=== PATIENT | male | born 1970 | race Caucasian/White ===

== ENCOUNTER 2018-03-25 07:36 | Emergency (ER) | payer OTHER ==
[~2018-03-25] VITALS: Ht 180.3 cm; Wt 110.0 kg
[~2018-03-25 07:36] MED LIST: ACET-1600 PO; LISI-167 PO; MULT-224 PO; None per pt; OXYC-307 PO
[2018-03-25 07:58] LABS: BASOPHILS # (AUTO) 0.08 x10^3/uL (0-0.1); BASOPHILS % (AUTO) 1 % (0-1); EOSINOPHILS # (AUTO) 0.17 x10^3/uL (0-0.4); EOSINOPHILS % (AUTO) 1 % (1-7); LYMPHOCYTES # (AUTO) 2.28 x10^3/uL (1-3.4); LYMPHOCYTES % (AUTO) 17 % (22-44); MD NO; MEAN CORPUSCULAR HEMOGLOBIN 33.3 pg (27.5-34.5); MEAN CORPUSCULAR HGB CONC 34.2 g/dL (33.2-36.2); MEAN CORPUSCULAR VOLUME 97.2 fL (81-97); MONOCYTES # (AUTO) 0.69 x10^3/uL (0.2-0.8); MONOCYTES % (AUTO) 5 % (2-9); NEUTROPHILS # (AUTO) 10.58 x10^3/uL (1.8-6.8); NEUTROPHILS % (AUTO) 77 % (42-75); PLATELET COUNT 392 x10^3/uL (130-400); RED BLOOD COUNT 4.91 x10^6/uL (4.38-5.82); RED CELL DISTRIBUTION WIDTH 12.9 % (9.4-14.8)
[2018-03-25] MEDS ORDERED: MORPHINE SULFATE 4 MG/ML, 1ML IVPush PRN (08:00)
[2018-03-25] MEDS ORDERED: SODIUM CHLORIDE FLUSH 10ML SYR IVF ONE (08:00)
[2018-03-25] MEDS ORDERED: DIPHENHYDRAMINE 50 MG/ML, 1ML IVPush ONE (08:00)
[2018-03-25] MEDS ORDERED: HALOPERIDOL 5 MG/ML IM ONE (08:00)
[2018-03-25] MEDS ORDERED: SODIUM CHLORIDE 0.9% 1,000ML IVBOLUS ONE (08:00)
[2018-03-25 08:08] LABS: ALANINE AMINOTRANSFERASE 26 U/L (12-78); ALBUMIN 4.1 g/dL (3.4-5.0); ANION GAP 9 mmol/L (5-15); CALCIUM 9.3 mg/dL (8.5-10.1); CHLORIDE 109 mmol/L (98-107); CREATININE 1.09 mg/dL (0.7-1.3)
[2018-03-25] MEDS ORDERED: MORPHINE SULFATE 4 MG/ML, 1ML ONE (08:09)
[2018-03-25] MEDS ORDERED: HALOPERIDOL 5 MG/ML ONE (08:09)
[2018-03-25] MEDS ORDERED: DIPHENHYDRAMINE 50 MG/ML, 1ML ONE (08:09)
[2018-03-25 08:10] LABS: ALKALINE PHOSPHATASE 81 U/L (45-117); BILIRUBIN,TOTAL 0.4 mg/dL (0.2-1.0); TOTAL PROTEIN 7.3 g/dL (6.4-8.2)
[2018-03-25 09:21] VITALS: BP 131/68
[2018-03-25 09:45] LABS: MICROSCOPIC NOT IND
[2018-03-25 09:49] LABS: CULTURE INDICATED? NO
== END 2018-03-25 10:41 | disposition home or self-care (01) ==
LOC: ED 10:35
DX: G43.A1 Cyclical vomiting, in migraine, intractable (principal); K21.9 Gastro-esophageal reflux disease without esophagitis; I10 Essential (primary) hypertension; F12.10 Cannabis abuse, uncomplicated; Z90.49 Acquired absence of other specified parts of digestive tract; Z87.891 Personal history of nicotine dependence
CPT/HCPCS: 36415; 74021; 80053; 81003; 83605; 83690; 85025; 93005; 96361; 96372; 96374; 96375; 99285; J1200; J1630; J7030

== ENCOUNTER 2018-05-27 13:11 | Inpatient (IN) | payer OTHER ==
[~2018-05-27] VITALS: Ht 180.3 cm; Wt 118.2 kg
[2018-05-27] MEDS ORDERED: SODIUM CHLORIDE 0.9% 1,000ML IVBOLUS ONE ×2 (13:30→17:30)
[2018-05-27] MEDS ORDERED: PROMETHAZINE 25 MG/ML, 1ML IM ONE (13:30)
[2018-05-27] MEDS ORDERED: PROMETHAZINE 25 MG/ML, 1ML ONE (13:39)
[2018-05-27] MEDS ORDERED: MORPHINE SULFATE 4 MG/ML, 1ML ONE ×2 (13:39→14:53)
[2018-05-27] MEDS: MORPHINE SULFATE 4 MG/ML, 1ML IVPush PRN ×2 (13:47→15:00)
[2018-05-27 14:07] LABS: BASOPHILS # (AUTO) 0.04 x10^3/uL (0-0.1); BASOPHILS % (AUTO) 0 % (0-1); EOSINOPHILS # (AUTO) 0.01 x10^3/uL (0-0.4); EOSINOPHILS % (AUTO) 0 % (1-7); LYMPHOCYTES # (AUTO) 1.61 x10^3/uL (1-3.4); LYMPHOCYTES % (AUTO) 12 % (22-44); MD NO; MEAN CORPUSCULAR HEMOGLOBIN 33.2 pg (27.5-34.5); MEAN CORPUSCULAR HGB CONC 33.9 g/dL (33.2-36.2); MEAN CORPUSCULAR VOLUME 98.1 fL (81-97); MEAN PLATELET VOLUME 8.1 fL (7.4-10.4); MONOCYTES # (AUTO) 0.53 x10^3/uL (0.2-0.8); MONOCYTES % (AUTO) 4 % (2-9); NEUTROPHILS # (AUTO) 11.66 x10^3/uL (1.8-6.8); NEUTROPHILS % (AUTO) 84 % (42-75); PLATELET COUNT 383 x10^3/uL (130-400); RED BLOOD COUNT 4.97 x10^6/uL (4.38-5.82); RED CELL DISTRIBUTION WIDTH 13.5 % (9.4-14.8)
[2018-05-27 14:18] LABS: ALBUMIN 4.3 g/dL (3.4-5.0); ANION GAP 6 mmol/L (5-15); CALCIUM 9.3 mg/dL (8.5-10.1); CHLORIDE 108 mmol/L (98-107)
[2018-05-27 14:21] LABS: ALANINE AMINOTRANSFERASE 28 U/L (12-78); ALKALINE PHOSPHATASE 82 U/L (45-117); BILIRUBIN,TOTAL 0.6 mg/dL (0.2-1.0); CREATININE 1.14 mg/dL (0.7-1.3); TOTAL PROTEIN 7.7 g/dL (6.4-8.2)
[2018-05-27 15:02] LABS: MICROSCOPIC NOT IND
[2018-05-27 15:12] LABS: CULTURE INDICATED? NO
[2018-05-27] MEDS ORDERED: OMNIPAQUE 350 MG/ML, 100ML BOTTLE ONE (16:09)
[2018-05-27] MEDS ORDERED: ONDANSETRON ODT 4 MG ONE (17:19)
[2018-05-27] MEDS ORDERED: ONDANSETRON ODT 4 MG PO ONE (17:30)
[2018-05-27] MEDS ORDERED: ZOLP10TA PO (17:57)
[2018-05-27] MEDS ORDERED: BUSP30TA PO (17:57)
[2018-05-27 18:35] VITALS: BP 127/85
[2018-05-27] MEDS ORDERED: ZOLPIDEM 10MG TABLET PO PRN (20:00)
[2018-05-27] MEDS ORDERED: NITROGLYCERIN 0.4 MG BOTTLE (25 TABS) SL PRN (20:00)
[2018-05-27] MEDS ORDERED: ACETAMINOPHEN 325 MG TABLET PO PRN (20:00)
[2018-05-27] MEDS ORDERED: NITROGLYCERIN 0.4 MG/SPRAY SL PRN (20:00)
[2018-05-27] MEDS ORDERED: ONDANSETRON 2MG/ML, 2ML IVPush PRN (20:00)
[2018-05-27 20:41] LABS: TROPONIN I < 0.015 ng/mL (0.000-0.045)
[2018-05-27] MEDS: morphine SULFATE 10 MG/ML, 1ML IVPush PRN (20:42)
[2018-05-27 21:15] LABS: CLOSTRIDIUM DIFFICILE ANTIGEN NEGATIVE; CLOSTRIDIUM DIFFICILE TOXIN NEGATIVE (Negative)
[2018-05-27 21:50] VITALS: BP 125/83
[2018-05-27] MEDS: METOCLOPRAMIDE 5 MG/ML, 2ML IVPush SCH (21:56)
[2018-05-27] MEDS: FAMOTIDINE 20 MG TABLET PO SCH (21:56)
[2018-05-27] MEDS: ENOXAPARIN 40 MG/0.4 ML SQ SCH (21:59)
[2018-05-27] MEDS: SODIUM CHLORIDE 0.9% 1,000 ML IV SCH (23:15)
[2018-05-28 01:48] VITALS: BP 104/66
[2018-05-28] MEDS: morphine SULFATE 10 MG/ML, 1ML IVPush PRN ×5 (01:53→20:47)
[2018-05-28 01:56] LABS: BASOPHILS # (AUTO) 0.04 x10^3/uL (0-0.1); BASOPHILS % (AUTO) 0 % (0-1); EOSINOPHILS # (AUTO) 0.01 x10^3/uL (0-0.4); EOSINOPHILS % (AUTO) 0 % (1-7); LYMPHOCYTES # (AUTO) 2.38 x10^3/uL (1-3.4); LYMPHOCYTES % (AUTO) 17 % (22-44); MD NO; MEAN CORPUSCULAR HEMOGLOBIN 33.2 pg (27.5-34.5); MEAN CORPUSCULAR HGB CONC 33.8 g/dL (33.2-36.2); MEAN PLATELET VOLUME 8.1 fL (7.4-10.4); MONOCYTES # (AUTO) 0.76 x10^3/uL (0.2-0.8); MONOCYTES % (AUTO) 5 % (2-9); NEUTROPHILS # (AUTO) 11.05 x10^3/uL (1.8-6.8); NEUTROPHILS % (AUTO) 78 % (42-75); PLATELET COUNT 380 x10^3/uL (130-400); RED BLOOD COUNT 4.43 x10^6/uL (4.38-5.82); RED CELL DISTRIBUTION WIDTH 13.4 % (9.4-14.8)
[2018-05-28 02:09] LABS: ALANINE AMINOTRANSFERASE 24 U/L (12-78); ALBUMIN 3.5 g/dL (3.4-5.0); ANION GAP 5 mmol/L (5-15); CALCIUM 8.4 mg/dL (8.5-10.1); CHLORIDE 111 mmol/L (98-107); CREATININE 0.94 mg/dL (0.7-1.3)
[2018-05-28 02:14] LABS: TROPONIN I < 0.015 ng/mL (0.000-0.045)
[2018-05-28 02:19] LABS: ALKALINE PHOSPHATASE 66 U/L (45-117); BILIRUBIN,TOTAL 0.5 mg/dL (0.2-1.0); THYROID STIMULATING HORMONE 0.422 mIU/L (0.358-3.740); TOTAL PROTEIN 6.6 g/dL (6.4-8.2)
[2018-05-28] MEDS: METOCLOPRAMIDE 5 MG/ML, 2ML IVPush SCH ×4 (04:00→20:32)
[2018-05-28] MEDS: SODIUM CHLORIDE 0.9% 1,000 ML IV SCH ×3 (06:03→20:31)
[2018-05-28 07:06] VITALS: BP 138/92
[2018-05-28] MEDS: BUSPIRONE 10 MG TABLET PO SCH (08:01)
[2018-05-28] MEDS: FAMOTIDINE 20 MG TABLET PO SCH ×2 (08:01→22:25)
[2018-05-28 14:29] VITALS: BP 152/113
[2018-05-28 17:22] VITALS: BP 97/65
[2018-05-28] MEDS: METOPROLOL TARTRATE 50 MG TABLET PO SCH (17:24)
[2018-05-28 20:26] VITALS: BP 132/85
[2018-05-28] MEDS: ENOXAPARIN 40 MG/0.4 ML SQ SCH (22:25)
[2018-05-29 01:29] VITALS: BP 132/88
[2018-05-29] MEDS: morphine SULFATE 10 MG/ML, 1ML IVPush PRN ×3 (01:54→10:40)
[2018-05-29] MEDS: METOCLOPRAMIDE 5 MG/ML, 2ML IVPush SCH ×3 (02:35→14:30)
[2018-05-29] MEDS: SODIUM CHLORIDE 0.9% 1,000 ML IV SCH ×3 (02:35→14:32)
[2018-05-29 07:06] VITALS: BP 144/98
[2018-05-29] MEDS: METOPROLOL TARTRATE 50 MG TABLET PO SCH (07:19)
[2018-05-29] MEDS: FAMOTIDINE 20 MG TABLET PO SCH (07:46)
[2018-05-29] MEDS: BUSPIRONE 10 MG TABLET PO SCH (07:46)
[2018-05-29 13:43] VITALS: BP 156/107
[2018-05-29] MEDS ORDERED: CLON0.2T10 PO (13:49)
[2018-05-29] MEDS ORDERED: METO50TA82 PO (13:49)
== END 2018-05-29 15:08 | disposition home or self-care (01) | DRG 392 ==
LOC: ED 13:51 → EDIP 17:14 → 3NE 17:59 → 5SO 23:08 → UNDODISIN 05-29 14:40 → DCLOUNGE 05-29 14:45
PROVIDERS: ADMIT Hospitalist; ATTEND Internal Medicine
PROC: 0T9B70Z Drainage of Bladder with Drainage Device, Via Natural or Artificial Opening (ICD-10-PCS; principal; 2018-05-27)
DX: R19.7 Diarrhea, unspecified (principal); R65.10 Systemic inflammatory response syndrome (SIRS) of non-infectious origin without acute organ dysfunction; E87.2 Acidosis; F11.20 Opioid dependence, uncomplicated; R11.2 Nausea with vomiting, unspecified; R07.9 Chest pain, unspecified; R10.9 Unspecified abdominal pain; E86.0 Dehydration; D72.829 Elevated white blood cell count, unspecified; F12.90 Cannabis use, unspecified, uncomplicated; I10 Essential (primary) hypertension; K21.9 Gastro-esophageal reflux disease without esophagitis; F41.9 Anxiety disorder, unspecified; Z90.49 Acquired absence of other specified parts of digestive tract; Z87.891 Personal history of nicotine dependence
CPT/HCPCS: 36415; 71045; 74177; 80053; 81003; 83605; 83690; 83735; 84100; 84443; 84484; 85025; 87040; 87324; 93005; 93306; 96361; 96372; 96374; 96376; G0378; J1650; J2550; Q0162; Q9967; J2270; J2765; J7030